=== PATIENT | female | born 1980 | race Caucasian/White ===

== ENCOUNTER 2016-04-12 13:01 | Emergency (ER) | payer OTHER ==
[2016-04-12 13:46] VITALS: BP 114/75
[2016-04-12] MEDS ORDERED: Ondansetron ODT TAB* 4 MG PO ONE (14:05)
[2016-04-12] MEDS ORDERED: Famotidine TAB* 20 MG PO ONE (14:16)
--- NOTE | 2016-04-12 14:18 | UC ---
UC General HPI - HPI Summary HPI Summary: patient has had nausea and vomiting since last night, now has diarrhea. worse symptom is the muscle cramping in her legs.works at a [employer], employer requesting that she be tested for flu do to work absence. - History of Current Complaint Chief Complaint: UCGI Stated Complaint: VOMITING WITH BODY ACHES Time Seen by Provider: 04/12/16 14:12 Hx Obtained From: Patient Onset/Duration: Sudden Onset, Lasting Hours Timing: Constant Onset Severity: Mild Current Severity: Severe Pain Intensity: 9 Associated Signs & Symptoms: Positive: Nausea, Vomiting, Weakness, Other - muscle cramping - Allergy/Home Medications Allergies/Adverse Reactions: Allergies Allergy/AdvReac Type Severity Reaction Status Date / Time Penicillins Allergy Unknown Verified 12/19/15 17:08 Reaction Details PMH/Surg Hx/FS Hx/Imm Hx Previously Healthy: Yes Endocrine History Of: Denies: Diabetes, Thyroid Disease Cardiovascular History Of: Denies: Cardiac Disorders, Hypertension Respiratory History Of: Denies: COPD, Asthma, Bronchitis GI/ History Of: Denies: Ulcer, Kidney Stones Neurological History Of: Denies: Seizures, Migraine Psychological History Of: Reports: Anxiety Denies: Depression, Bipolar Disorder, Schizophrenia Other History Of: Anticoagulant Therapy - Surgical History Surgical History: Yes Surgery Procedure, Year, and Place: Gallbladder 2013, - Family History Known Family History: Negative: Cardiac Disease, Hypertension - Social History Alcohol Use: None Substance Use Type: None Smoking Status (MU): Light Every Day Tobacco Smoker Type: Cigarettes Amount Used/How Often: 2 Length of Time of Smoking/Using Tobacco: 14 years Have You Smoked in the Last Year: Yes - Immunization History Most Recent Influenza Vaccination: none Most Recent Tetanus Shot: 11/2010 Most Recent Pneumonia Vaccination: none Review of Systems Constitutional: Negative, Chills Skin: Negative Eyes: Negative ENT: Negative Respiratory: Negative Cardiovascular: Negative Gastrointestinal: Vomiting, Diarrhea Genitourinary: Negative Motor: Negative Neurovascular: Negative Musculoskeletal: Myalgia Neurological: Negative Psychological: Negative All Other Systems Reviewed And Are Negative: Yes Physical Exam Triage Information Reviewed: Yes Appearance: Well-Nourished, Ill-Appearing, Pain Distress Vital Signs: Initial Vital Signs Temp 98.8 F 04/12/16 13:42 Pulse 101 04/12/16 13:42 Resp 18 04/12/16 13:42 BP 114/75 04/12/16 13:42 Pulse Ox 100 04/12/16 13:42 Vital Signs Reviewed: Yes Eye Exam: Normal Eyes: Positive: Conjunctiva Clear ENT Exam: Normal ENT: Positive: Normal ENT inspection, Hearing grossly normal, Pharynx normal, TMs normal Dental Exam: Normal Neck exam: Normal Neck: Positive: Supple, Nontender, No Lymphadenopathy Respiratory Exam: Normal Respiratory: Positive: Chest non-tender, Lungs clear, Normal breath sounds Cardiovascular Exam: Normal Cardiovascular: Positive: RRR, No Murmur, Pulses Normal Abdominal Exam: Normal - diffuse cramping, no palpable tenderness, no CVA tenderness, nor masses palpated Bowel Sounds: Positive: Hyperactive Musculoskeletal Exam: Normal Musculoskeletal: Positive: Strength Intact, ROM Intact, No Edema Neurological Exam: Normal Neurological: Positive: Alert, Muscle Tone Normal Psychological Exam: Normal Skin Exam: Normal Course/Dx - Course Course Of Treatment: hx obtained, exam performed, medications given, rapid flu obtained, was negative. toradol given for muscle pain. patient respindign well to zofran and famotidine. - Differential Dx - Multi-Symptom Provider Diagnoses: gastroenteritis. dehydration, mild Discharge - Discharge Plan Condition: Stable Disposition: HOME Patient Education Materials: Gastroenteritis (ED) Additional Instructions: you have received a shot of toradol today for your muscle pain at 2:30, do not take any ibuprofen or aleve until 10:30 tonight. Continue with the prescirbed Zofran for nausea. Continue with fluid intake, eat as tolerated in small amounts. follow up if vomiting becomes uncontrolled. If diarrhea becomes to frequent. You can take an immodium AD if needed, do not exceed 8 mg daily.
[2016-04-12] MEDS ORDERED: Ketorolac INJ* 30 MG/ML 1 ML VIAL IM ONE (14:35)
== END 2016-04-12 14:57 | disposition home or self-care (01) ==
LOC: UCEAST 13:01
DX: K52.9 Noninfective gastroenteritis and colitis, unspecified (principal); E86.0 Dehydration; Z88.0 Allergy status to penicillin; Z90.49 Acquired absence of other specified parts of digestive tract; F17.210 Nicotine dependence, cigarettes, uncomplicated
CPT/HCPCS: 87502; 96372; 99212; A9270-GY; G0463; J1885

== ENCOUNTER 2016-05-23 13:54 | Emergency (ER) | payer OTHER ==
[2016-05-23 15:01] VITALS: BP 125/59
[2016-05-23] MEDS ORDERED: Ibuprofen TAB* 400 MG PO ONE (15:28)
--- NOTE | 2016-05-23 16:25 | UC ---
FLU HPI - HPI Summary HPI Summary: SINCE YESTERDAY HAS HAD EAR PAIN, LIGHT SENSITIVITY, CHILLS, SWEATS, CONGESTION , SORETHROAT AND MUSCLE ACHES. NO HEADACHE. NO NECK STIFFNESS. NO VOMITING. NO DIARRHEA. - History of Current Complaint Chief Complaint: UCGeneralIllness Stated Complaint: FLU SYMPTOMS Time Seen by Provider: 05/23/16 14:50 Hx Obtained From: Patient Hx Last Menstrual Period: 05/04/16 Onset/Duration: Sudden Onset, Lasting Hours, Still Present Severity Currently: Moderate Severity Initially: Moderate Associated Signs & Symptoms: Positive: Fever, F/C, Myalgia, Cough, Sore Throat, Nasal Congestion Related Hx: Possible Flu/Infectious Exposure - Allergy/Home Medications Allergies/Adverse Reactions: Allergies Allergy/AdvReac Type Severity Reaction Status Date / Time Penicillins Allergy Unknown Verified 05/23/16 14:49 Reaction Details PMH/Surg Hx/FS Hx/Imm Hx Previously Healthy: Yes Endocrine History Of: Denies: Diabetes, Thyroid Disease Cardiovascular History Of: Denies: Cardiac Disorders, Hypertension Respiratory History Of: Denies: COPD, Asthma, Bronchitis GI/ History Of: Denies: Ulcer, Kidney Stones Neurological History Of: Denies: Seizures, Migraine Psychological History Of: Reports: Anxiety Denies: Depression, Bipolar Disorder, Schizophrenia Other History Of: Anticoagulant Therapy - Surgical History Surgical History: Yes Surgery Procedure, Year, and Place: Cholecystomy, 2012, - Family History Known Family History: Negative: Cardiac Disease, Hypertension - Social History Occupation: Employed Full-time Lives: With Family Alcohol Use: None Substance Use Type: None Smoking Status (MU): Former Smoker Type: Cigarettes Amount Used/How Often: 2 Length of Time of Smoking/Using Tobacco: 14 years Have You Smoked in the Last Year: Yes - Immunization History Most Recent Influenza Vaccination: none Most Recent Tetanus Shot: 11/2010 Most Recent Pneumonia Vaccination: none Review of Systems Constitutional: Fever, Chills, Fatigue Skin: Negative Eyes: Photophobia ENT: Sore Throat, Ear Ache, Nasal Discharge Respiratory: Negative Cardiovascular: Negative Gastrointestinal: Negative Genitourinary: Negative Motor: Negative Neurovascular: Negative Musculoskeletal: Myalgia Neurological: Negative Psychological: Negative All Other Systems Reviewed And Are Negative: Yes Physical Exam Triage Information Reviewed: Yes Appearance: No Pain Distress, Well-Nourished, Ill-Appearing - MODERATE Vital Signs: Initial Vital Signs Temp 98.7 F 05/23/16 14:50 Pulse 96 05/23/16 14:50 Resp 16 05/23/16 14:50 BP 125/59 05/23/16 14:50 Pulse Ox 96 05/23/16 14:50 Vital Signs Reviewed: Yes Eye Exam: Normal ENT Exam: Normal ENT: Positive: Normal ENT inspection, Hearing grossly normal, Pharynx normal, Pharyngeal erythema, TMs normal Dental Exam: Normal Neck exam: Normal Neck: Positive: Supple, Nontender, No Lymphadenopathy. Negative: Nuchal Rigidity, Tenderness @, Enlarged Nodes @ Respiratory Exam: Normal Respiratory: Positive: Chest non-tender, Lungs clear, Normal breath sounds, No respiratory distress, No accessory muscle use Cardiovascular Exam: Normal Cardiovascular: Positive: RRR, No Murmur, Pulses Normal, Brisk Capillary Refill Abdominal Exam: Normal Abdomen Description: Positive: Nontender, No Organomegaly, Soft Musculoskeletal Exam: Normal Musculoskeletal: Positive: Strength Intact, ROM Intact Neurological Exam: Normal Psychological Exam: Normal Psychological: Positive: Normal Response To Family Skin Exam: Normal Flu Course/Dx - Differential Dx/Diagnosis Differential Diagnosis/HQI/PQRI: Influenza, Upper Respiratory Infection, Other - STEREP Provider Diagnoses: INFLUENZA Discharge - Discharge Plan Condition: Stable Disposition: HOME Prescriptions: Oseltamivir CAP* [Tamiflu CAP*] 75 mg PO BID #10 cap Patient Education Materials: Influenza (ED) Forms: *Work Release Referrals: Sharon Alex MD [Primary Care Provider] -
== END 2016-05-23 16:17 | disposition home or self-care (01) ==
LOC: UCEAST 13:54
DX: J11.1 Influenza due to unidentified influenza virus with other respiratory manifestations (principal); Z87.891 Personal history of nicotine dependence; Z88.0 Allergy status to penicillin; F41.9 Anxiety disorder, unspecified
CPT/HCPCS: 87502; 87651; 99212; A9270-GY; G0463

== ENCOUNTER 2017-02-07 19:21 | Emergency (ER) | payer OTHER ==
[2017-02-07 19:32] VITALS: BP 120/64
--- NOTE | 2017-02-07 20:29 | UC ---
Ana Aguiar Alfonso, scribed for Willie Steinberg MD on 02/07/17 at 2005 . Ear Complaint HPI - HPI Summary HPI Summary: This patient is a 36 year old F presenting to [facility] accompanied by daughter with a chief complaint of right ear pain since a few days ago. The patient rates the pain 5/10 in severity. Symptoms aggravated and alleviated by nothing. Patient reports productive cough (with clear phlegm which began first two weeks ago), nasal congestion, headache, diaphoresis, and sore throat. She reports sick contacts in her children, including bronchitis and ear infection. - History of Current Complaint Chief Complaint: UCRespiratory Stated Complaint: EAR PAIN Hx Obtained From: Patient Onset/Duration: Gradual Onset, Lasting Days, Still Present Severity Currently: Moderate Pain Intensity: 5 Pain Scale Used: 0-10 Numeric Aggravating Factors: Nothing Alleviating Factors: Nothing Associated Signs/Symptoms: Positive: URI Symptoms Related History: Smoking - Allergies/Home Medications Allergies/Adverse Reactions: Allergies Allergy/AdvReac Type Severity Reaction Status Date / Time Penicillins Allergy Unknown Verified 02/07/17 19:24 Reaction Details Home Medications: Home Medications Sertraline HCl [Zoloft] 50 mg PO DAILY 02/07/17 [History Confirmed 02/07/17] PMH/Surg Hx/FS Hx/Imm Hx - Additional Past Medical History Additional PMH: No HTN or DM. Previously Healthy: Yes - No HTN or DM, Other History Of: Anticoagulant Therapy - Surgical History Surgical History: Yes Surgery Procedure, Year, and Place: , 2012, - Family History Known Family History: Negative: Cardiac Disease, Hypertension - Social History Alcohol Use: None Substance Use Type: None Smoking Status (MU): Light Every Day Tobacco Smoker Type: Cigarettes Amount Used/How Often: 5-6 per day Length of Time of Smoking/Using Tobacco: 14 years Have You Smoked in the Last Year: Yes - Immunization History Most Recent Influenza Vaccination: 2017 Most Recent Tetanus Shot: 11/2010 Most Recent Pneumonia Vaccination: none Review of Systems Constitutional: Other - Diaphoresis ENT: Sore Throat, Ear Ache - R, Other - nasal congestion Respiratory: Cough All Other Systems Reviewed And Are Negative: Yes Physical Exam Triage Information Reviewed: Yes Appearance: Well-Appearing, No Pain Distress, Well-Nourished Vital Signs: Initial Vital Signs Temp 98.7 F 02/07/17 19:26 Pulse 91 02/07/17 19:26 Resp 18 02/07/17 19:26 BP 120/64 02/07/17 19:26 Pulse Ox 98 02/07/17 19:26 Vital Signs Reviewed: Yes Eyes: Positive: Conjunctiva Clear ENT: Positive: Hearing grossly normal, Pharynx normal, Other - Right TM small amount of white appearing layering fluid.. Negative: Tonsillar swelling, Tonsillar exudate, Trismus, Muffled voice, Hoarse voice Neck: Positive: Supple, Nontender Respiratory: Positive: Chest non-tender, Lungs clear, No respiratory distress, No accessory muscle use Cardiovascular: Positive: RRR Abdomen Description: Positive: Nontender, Soft Bowel Sounds: Positive: Present Musculoskeletal: Positive: Strength Intact Neurological: Positive: Alert Psychological: Positive: Normal Response To Family, Age Appropriate Behavior Skin: Negative: rashes Ear Complaint Course/Dx - Course Course Of Treatment: strep neg flu neg, will be prescribed z-edwin for sick contacts with bronchitis - Differential Dx/Diagnosis Provider Diagnoses: bronchitis Discharge - Discharge Plan Condition: Stable Disposition: HOME Prescriptions: Azithromyxin EDWIN (NF) [Z-Edwin (Zithromax) 250 mg tabs #6] 2 tab PO .TODAY, THEN 1 DAILY #6 tab Patient Education Materials: Acute Bronchitis (ED) Forms: *Work Release Referrals: Sharon Alex MD [Primary Care Provider] - Additional Instructions: PLEASE RETURN FOR ANY WORSENING OR CONCERENING SYMPTOMS AND REPORT TO THE ER FOR ANY EMERGENCIES PLEASE MAKE AN APPOINTMENT WTIH YOUR PRIMARY CARE DOCTOR TO BE SEEN WITHIN 1 WEEK The documentation as recorded by the Ana jennings Alfonso accurately reflects the service I personally performed and the decisions made by , Willie Steinberg MD.
== END 2017-02-07 20:28 | disposition home or self-care (01) ==
LOC: UCEAST 19:21
DX: J11.1 Influenza due to unidentified influenza virus with other respiratory manifestations (principal)
CPT/HCPCS: 87502; 87651; 99212; G0463